=== PATIENT | male | born 1970 | race Caucasian/White ===

== ENCOUNTER 2021-09-25 09:34 | Emergency (ER) | payer SELFPAY ==
[~2021-09-25] VITALS: Ht 180.3 cm; Wt 74.0 kg
--- NOTE | 2021-09-25 09:55 | PHYS DOC ---
Adult General Chief Complaint Chief Complaint: ALTERED MENTAL STATUS HPI HPI The patient is a 51-year-old male who is undomiciled. He presents for evaluation via EMS after being found sleeping in a laundromat. He was easily awoken by EMS but was somewhat confused and therefore was transported. He state s the year is 2003 and that we are in [place]. He is alert, pleasantly and appropriately interactive, in no acute distress, with normal vital signs and blood glucose, and denies pain anywhere. There are no signs of trauma. Patient does appear quite disheveled. He states he does not drink or use drugs. Review of Systems Review of Systems A 12 point review of systems was completed and was negative except where noted in HPI above. Allergies Allergies Allergies Coded Allergies Type Severity Reaction Last Updated Verified Penicillins Allergy Severe anaphylaxis 09/25/21 Yes Physical Exam Physical Exam 51-year-old male appearing nontoxic and in no acute distress. He does appear disheveled and older than his stated age. Head is normocephalic and atraumatic. Neck is supple and nontender. Oropharynx is moist. Lungs are clear to auscultation at all stations. There is a normal S1 and S2 without rubs or gallops and capillary refill is appropriate, less than 2 seconds globally. Abdomen is soft, nontender and nondistended. Skin is warm and dry without cyanosis, clubbing or edema. Psychiatrically, the patient demonstrates appropriate mood and affect and is alert. Evaluation of the extremities reveals BUEs and BLEs neurovascularly intact distally with strength 5 x 5, sensation intact light touch in all nerve distributions, radial, DP and PT pulses 2+ and equal bilaterally, capillary refill less than 2 seconds, hands and feet warm and well-perfused. No dependent peripheral edema distally. No calf tenderness or swelling bilaterally. Homans test is negative bilaterally. Neurologically, cranial nerves II through XII are intact and there are no lateralizing deficits seen. Speech is normal. Language is normal. Coordination is normal. There is no dysmetria finger-nose or [id number] bilaterally. Strength is 5 out of 5 at all joints of bilateral upper and lower extremities. Sensation intact to light touch in bilateral upper and lower extremities. Patient ambulates with a narrow, steady, non-ataxic gait here in the emergency department and is alert and oriented to self and situation only. Current Patient Data Vital Signs Vital Signs Date Time Temp Pulse Resp B/P (MAP) Pulse Ox O2 Delivery O2 Flow Rate FiO2 09/25/21 09:35 97.6 76 22 127/71 (89) 99 Room Air 97.6 EKG EKG [] Radiology/Procedures Radiology/Procedures [] Course & Med Decision Making Course & Med Decision Making Well-appearing 51-year-old homeless man here because he was sleeping in a laundromat and is a little disoriented. Vital signs and clinical examination benign. Will start with basic and toxicology labs and will then reevaluate. 1003: Patient states he does not want to have his blood drawn. States he had would like to leave. He is alert and oriented x4 on reassessment, calm, cooperative and goal-directed in his thought process. He is focused on going back to the laundromat to retrieve his belongings. No evidence of an emergency medical condition is identified and I believe the patient has capacity to refuse further testing or treatment, which I am not sure is warranted anyway given resolution of his confusion. Will discharge per his request. He understands that if he feels worse instead of better or develops other new symptoms of concern that he should return to the emergency department right away for reevaluation. All questions are answered. Dragon Disclaimer Dragon Disclaimer This electronic medical record was generated, in whole or in part, using a voice recognition dictation system. Departure Departure Impression: Primary Impression: Encounter for medical screening examination Disposition: HOME / SELF CARE / HOMELESS Condition: IMPROVED Patient Instructions: Medical Screening Exam Additional Instructions: Follow-up very closely with your primary care doctor in the office in the next 2 to 4 days for a reevaluation of your symptoms and a discussion of next best steps in care. Return to the emergency department right away for recurrent or worsening symptoms of any kind or with any other new symptoms of concern. LIZZ NOLAN MD Sep 25, 2021 09:55
[2021-09-25 10:00] VITALS: BP 121/80
== END 2021-09-25 10:03 | disposition home or self-care (01) ==
LOC: ER 09:34
DX: R41.0 Disorientation, unspecified (principal); Z88.0 Allergy status to penicillin
CPT/HCPCS: 99283